=== PATIENT | female | born 1960 | race Caucasian/White ===

== ENCOUNTER 2020-09-10 06:05 | Day surgery (SDC) | payer BC, OTHER ==
[2020-09-06 17:05] VITALS: BMI 43.0
[2020-09-10] MEDS ORDERED: BUPIVACAINE HCL/PF 0.25% (2.5MG/ML) 10 ML VIAL ONE (07:12)
[2020-09-10] MEDS ORDERED: LIDOCAINE HCL 1%, 10 MG/ML (20ML VIAL) ONE (07:12)
[2020-09-10 08:28] VITALS: TEMP 97.3
[2020-09-10 09:22] VITALS: BP 114/75; PULSE 74
== END 2020-09-10 09:29 | disposition home or self-care (01) ==
LOC: FASU 06:05
PROVIDERS: ATTEND Orthopaedic Surgery
PROC: 01N50ZZ Release Median Nerve, Open Approach (ICD-10-PCS; principal; 2020-09-10 07:58)
DX: G56.02 Carpal tunnel syndrome, left upper limb (principal)

== ENCOUNTER 2020-09-12 13:59 | Emergency (ER) | payer BC, OTHER ==
[2020-09-12 14:07] VITALS: BP 119/83; PULSE 83; TEMP 99; BMI 42.7
[2020-09-15] MEDS ORDERED: LOCK ITEM NR ONE (07:37)
== END 2020-09-12 14:21 | disposition home or self-care (01) ==
LOC: FER 13:59
DX: Z48.00 Encounter for change or removal of nonsurgical wound dressing (principal)
CPT/HCPCS: 99281-25

== ENCOUNTER 2022-02-10 07:02 | Day surgery (SDC) | payer BC, OTHER ==
[2022-02-07 11:47] VITALS: BMI 44.9
[2022-02-10] MEDS ORDERED: DEXAMETHASONE SOD PHOSPHATE 10 MG/1 ML VIAL ONE (08:20)
[2022-02-10] MEDS ORDERED: MIDAZOLAM HCL 2 MG/2 ML SINGLE DOSE VIAL ONE (08:20)
[2022-02-10] MEDS ORDERED: ROPIVACAINE HCL 0.5% 30ML VIAL ONE (08:21)
[2022-02-10 11:12] VITALS: RESP 18; TEMP 97.8
[2022-02-10 12:42] VITALS: BP 139/74; PULSE 80
== END 2022-02-10 12:20 | disposition home or self-care (01) ==
LOC: FASU 07:02
PROVIDERS: ATTEND Orthopaedic Surgery
PROC: 0RNK4ZZ Release Left Shoulder Joint, Percutaneous Endoscopic Approach (ICD-10-PCS; principal; 2022-02-10 09:32)
DX: M75.02 Adhesive capsulitis of left shoulder (principal); M75.42 Impingement syndrome of left shoulder; S43.432A Superior glenoid labrum lesion of left shoulder, initial encounter; M19.012 Primary osteoarthritis, left shoulder; X58.XXXA Exposure to other specified factors, initial encounter; Y93.9 Activity, unspecified; Y92.9 Unspecified place or not applicable
CPT/HCPCS: 82962; 94760; J1100